=== PATIENT | male | born 1935 | race Asian ===

== ENCOUNTER 2016-11-27 11:29 | Day surgery (SDC) | payer MEDICARE, BC ==
[~2016-11-27] VITALS: Ht 170.2 cm; Wt 48.6 kg
[~2016-11-27 11:29] MED LIST: APIX2.5T PO; BUPIVACAINE/PF 0.5% ONE; BUPIVACAINE/PF-EPI 0.25% 1:200K ONE; CARV3.1212 PO; CHOL10003 PO; DIGO250T PO; DOCU-30 PO; FERR325T10 PO; HYDR-3307 PO; LEVE500T53 PO; NEOSPORIN OINT, 15GM ONE; SENN8.6T4 PO; THROMBIN 5,000 UNIT VIAL TP ONE; [UNRECOGNIZED DRUG - CODE] PO
[2016-11-27] MEDS ORDERED: LACTATED RINGERS 1,000 ML IV SCH (11:59)
[2016-11-27] MEDS ORDERED: FENTANYL PF 250 MCG/5ML ONE (12:44)
[2016-11-27 12:59] VITALS: BP 113/74
[2016-11-27] MEDS ORDERED: HYDROcodone/APAP 10/325 MG TABLET PO PRN (13:00)
[2016-11-27 13:20] LABS: BLOOD UREA NITROGEN 14 mg/dL (7-18)
[2016-11-27] MEDS ORDERED: ONDANSETRON 2MG/ML, 2ML ONE (13:21)
[2016-11-27] MEDS ORDERED: PHENYLEPHRINE 10 MG/ML ONE (13:21)
[2016-11-27] MEDS ORDERED: DEXAMETHASONE 4 MG/ML, 1ML ONE (13:21)
[2016-11-27] MEDS ORDERED: SUCCINYLCHOLINE 20 MG/ML, 10ML ONE (13:21)
[2016-11-27] MEDS ORDERED: CEFAZOLIN 1,000 MG ONE (13:21)
[2016-11-27] MEDS ORDERED: PROPOFOL 10 MG/ML, 20ML ONE (13:21)
[2016-11-27 13:24] LABS: ASPARTATE AMINO TRANSFERASE 6 U/L (15-37)
[2016-11-27] MEDS ORDERED: morphine SULFATE 10 MG/ML, 1ML IVPush PRN (13:30)
[2016-11-27] MEDS ORDERED: HYDROcodone/APAP 5/325 TABLET PO PRN (13:30)
[2016-11-27] MEDS ORDERED: PROMETHAZINE 25 MG/ML, 1ML IM PRN (13:30)
[2016-11-27 13:36] LABS: DIFF TOTAL CELLS COUNTED 100 CELL DIFF
[2016-11-27] MEDS ORDERED: OMNIPAQUE 180 MG/ML, 20ML VIAL IT ONE ×2 (13:39→13:43)
[2016-11-27 13:42] LABS: VERIFY COUNTS? YES
[2016-11-27] MEDS ORDERED: HYDROmorphone 1 MG/ML, 1ML IV PRN (14:00)
[2016-11-27] MEDS ORDERED: ONDANSETRON 2MG/ML, 2ML IVPush PRN (14:00)
[2016-11-27] MEDS ORDERED: FENTANYL PF 100 MCG/2ML IV PRN (14:00)
[2016-11-27] MEDS ORDERED: hydrALAzine 20 MG/ML, 1ML IV PRN (14:00)
[2016-11-27] MEDS ORDERED: LABETALOL 5MG/ML, 20ML IV PRN (14:00)
[2016-11-27] MEDS ORDERED: MIDAZOLAM 1 MG/ML, 2ML IV PRN (14:00)
[2016-11-27] MEDS ORDERED: EPHEDRINE 50 MG/ML, 1ML IVPush PRN (14:00)
[2016-11-27] MEDS ORDERED: ACETAMINOPHEN 325 MG TABLET PO PRN (14:00)
[2016-11-27] MEDS ORDERED: ALBUTEROL/IPRATROPIUM 2.5MG/0.5MG, 3 ML NPPB PRN (14:00)
[2016-11-27] MEDS ORDERED: PROMETHAZINE 25 MG/ML, 1ML IV PRN (14:00)
[2016-11-27] MEDS ORDERED: OXYcodone 5 MG/5 ML ORAL.SOL UDC PO PRN (14:00)
[2016-11-27] MEDS ORDERED: MEPERIDINE/PF 25MG/0.5ML IVPush PRN (14:00)
[2016-11-27] MEDS ORDERED: OMNIPAQUE 180 MG/ML, 20ML VIAL ONE (14:19)
[2016-11-27] MEDS ORDERED: ACETAMINOPHEN 325 MG TABLET ONE (14:23)
[2016-11-27] MEDS ORDERED: OXYcodone 5 MG/5 ML ORAL.SOL UDC ONE (14:23)
[2016-11-27] MEDS ORDERED: FENTANYL PF 100 MCG/2ML ONE (14:23)
[2016-11-27] MEDS ORDERED: CARVEDILOL 3.125 MG TABLET PO SCH (21:00)
[2016-11-27] MEDS ORDERED: APIXABAN 2.5 MG TABLET PO SCH (21:00)
[2016-11-27] MEDS ORDERED: DOCUSATE 100 MG CAPSULE PO SCH (21:00)
[2016-11-27] MEDS ORDERED: CALCIUM/VITAMIN D3 250-125 TABLET PO SCH (21:00)
[2016-11-27] MEDS ORDERED: FERROUS SULFATE 325 MG TABLET PO SCH (21:00)
[2016-11-27] MEDS ORDERED: LEVETIRACETAM 500 MG TABLET PO SCH (21:00)
[2016-11-28] MEDS ORDERED: SENNOSIDES 8.6 MG TABLET PO SCH (09:00)
[2016-11-28] MEDS ORDERED: CHOLECALCIFEROL 1,000 UNIT TABLET PO SCH (09:00)
[2016-11-28] MEDS ORDERED: DIGOXIN 0.25 MG TABLET PO SCH (09:00)
== END 2016-11-27 17:30 | disposition home or self-care (01) ==
LOC: OUT 11:29
PROVIDERS: ATTEND Orthopaedic Surgery Orthopaedic Surgery of the Spine
DX: S32.011A Stable burst fracture of first lumbar vertebra, initial encounter for closed fracture (principal); M54.5 Low back pain; I48.91 Unspecified atrial fibrillation; Z87.891 Personal history of nicotine dependence; I50.9 Heart failure, unspecified; M81.0 Age-related osteoporosis without current pathological fracture; X58.XXXA Exposure to other specified factors, initial encounter; Y93.9 Activity, unspecified; Y92.9 Unspecified place or not applicable; Y99.9 Unspecified external cause status
CPT/HCPCS: 22514; 36415; 71010; 72100; 80053; 85025; 93005; C1713; J0330; J0690; J1100; J2370; J2405; J2704; J3010; J7120; Q9965; J3490